=== PATIENT | female | born 1985 | race Hispanic/Latino ===

== ENCOUNTER 2021-09-16 23:17 | Emergency (ER) | payer BC ==
[~2021-09-16] VITALS: Ht 157.5 cm; Wt 72.6 kg
[~2021-09-16 23:17] MED LIST: HYDROXYZINE HCL 25 MG TAB PO ONE
[2021-09-17] MEDS ORDERED: HYDROXYZINE HCL25 MG PO
[2021-09-17] MEDS ORDERED: PREDNISONE50 MG PO
[2021-09-17] MEDS ORDERED: PREDNISONE 20 MG TAB PO ONE
[2021-09-17] MEDS: HYDROXYZINE HCL 10 MG TAB PO PRN ×2 (00:09→00:23)
[2021-09-17] MEDS ORDERED: HYDROXYZINE HCL 10 MG TAB ONE (00:18)
== END 2021-09-17 00:41 | disposition home or self-care (01) ==
LOC: ER 23:39
DX: R07.0 Pain in throat (principal); T78.40XA Allergy, unspecified, initial encounter; F17.210 Nicotine dependence, cigarettes, uncomplicated
CPT/HCPCS: 99283; J3410; J7512